=== PATIENT | female | born 1980 ===

== ENCOUNTER 2025-01-11 10:09 | Emergency (ER) | payer BC, SELFPAY ==
--- NOTE | ~2025-01-11 | XR_ITS ---
XR hand RT min 3V Ordering provider: Surinder Treviño MD History: . right hand middle finger injury . Comparison: None. FINDINGS: BONES: Healed or healing fracture in the fourth metacarpal bone is noted. Possible lucency at the bas e of the distal phalanx of the thumb which may indicate a fracture. Follow-up advised. JOINT SPACES: Normal. SOFT TISSUES: Normal. IMPRESSION: Healed or healing fracture in the fourth metacarpal bone. Lucency at the base of the distal phalanx of the thumb which may be a fracture. Clinical correlation advised. N Reviewed, dictated and finalized at location A.
[2025-01-11 10:10] VITALS: BP 144/87; PULSE 81; RESP 18; TEMP 37.1; O2SAT 97
--- NOTE | 2025-01-11 10:15 | ED.UPPEXIN ---
HPI - Extremity Injury (Upper) General Chief Complaint: Extremity Injury, Upper Stated Complaint: finger injury Time Seen by Provider: 01/11/25 10:15 Source: patient Mode of arrival: ambulatory Limitations: no limitations History of Present Illness HPI narrative: 44-year-old female with no significant past medical history presents to the ED with a 3 day history of -- pain and swelling of the right middle finger. she hurt herself while cooking 3 days ago. No other injuries noted. MD complaint: injury to: right Onset (ago): day(s) ( Three days) Other Extremity Injury: Right: fingers Other injuries: none Handedness: right Place: home Severity: moderate Relieving factors: immobilization Exacerbating factors: movement of extremity Context: direct blow Associated symptoms: denies other symptoms Related Data Allergies Allergy/AdvReac Type Severity Reaction Status Date / Time narcotics AdvReac Severe Abdominal Uncoded 01/11/25 10:31 Pain Review of Systems Review of Systems: All systems reviewed & are unremarkable except as noted in HPI and below Exam Narrative: vitals are stable Const: General: no acute distress Nutritional Appearance: well nourished Orientation/consciousness: patient oriented x3 Limitations: no limitations HENMT: Head: normal to inspection Ears: external ears normal Face/Nose/Sinus: Normal external nose present Face and sinus: normal facial exam Mouth: Yes Normal oral and palatal mucosa present Eyes: Conjunctivae: conjunctivae normal Pupils: Equal, round and reactive pupils present EOM: EOMs intact bilaterally Direct Ophthalmoscopy: no photophobia Neck: Neck: normal visual inspection, no lymphadenopathy and no meningeal signs Chest: Chest palpation & inspection: normal inspection of the chest Resp: Effort & Inspection: normal respiratory effort Auscultation: clear to auscultation bilaterally Cardio: Rate: regular rate Rhythm: regular rhythm GI: GI Palp: Yes Soft to palpation Auscultation: normal bowel sounds Other: no tenderness/ rigidity /rebound. : General: Yes no CVA tenderness Back/Spine/Pelvis: Back: no CVA tenderness Skin: General skin exam: normal color Rashes: no rashes Wounds: no wounds Neuro: General: patient oriented x3, moves all extremities, no meningeal signs, no focal motor deficits and CN's II-XI intact bilaterally Cranial nerves: Yes Nystagmus not present Speech: normal speech Extrem: General: normal to inspection and no clubbing, cyanosis or edema Other: Right hand middle finger is swollen along with swelling of 3rd MP joint. Decreased range of motion. Psych: Mental Status: mental status grossly normal Affect: normal affect Attitude: cooperative Course Course Emergency Course: Right hand 3rd finger/ 3rd MP joint tenderness/swelling-- x-ray did not show any fracture or dislocation at this segment. X-ray shows a fracture in the 4th metacarpal where she had a previous fracture. X-ray also shows a small fracture in the distal phalanx of the thumb and the patient does not have any tenderness at that spot. Patient received Toradol without significant improvement. Vital Signs Vital signs: Vital Signs Temperature 37.1 C 01/11/25 10:10 Pulse Rate 81 01/11/25 10:10 Respiratory Rate 18 01/11/25 10:10 Blood Pressure 144/87 H 01/11/25 10:10 Pulse Oximetry 97 01/11/25 10:10 Oxygen Delivery Room Air 01/11/25 10:10 Temperature 37.1 C 01/11/25 10:10 Pulse Rate 81 01/11/25 10:10 Respiratory Rate 18 01/11/25 10:10 Blood Pressure 144/87 H 01/11/25 10:10 Pulse Oximetry 97 01/11/25 10:10 Oxygen Delivery Room Air 01/11/25 10:10 MDM - Extremity Injury (Upper) MDM Narrative Medical decision making narrative: right Third MP joint sprain right 3rd finger sprain. Differential Diagnosis Differential diagnosis: Likely finger sprain and dislocation of finger Medical Records Attestation: I reviewed the patient's medical records. Lab Data Attestation: I reviewed the patient's lab results. Discharge Plan Discharge Clinical Impression: Finger sprain Qualifiers: Encounter type: initial encounter Finger: middle finger Sprain of finger site: interphalangeal joint Laterality: right Qualified Code(s): S63.632A - Sprain of interphalangeal joint of right middle finger, initial encounter Metacarpophalangeal joint pain Qualifiers: Laterality: right Qualified Code(s): M25.541 - Pain in joints of right hand Patient Disposition: Home Condition: Stable Instructions: Antibiotic Form, Finger Sprain (ED) Patient Language: Telugu Prescriptions: New diclofenac sodium 50 mg tablet,delayed release (DR/EC) 50 mg PO TID PRN (Reason: pain) Qty: 30 0RF Follow-up/Referrals: UNKNOWN,DOCTOR [Primary Care Provider] - Stand Alone Forms: Work/School Release IP Time of Disposition: 11:14
[2025-01-11] MEDS: KETOROLAC 30 MG/ML VIAL (*BKC) IM (10:37)
--- OUTSIDE RECORDS SUMMARY | 2025-01-11 11:35 | XMS_ITS | Referral Summary ---
Author Organization [facility] Address [address] [place] [address] Care Team Providers Care Animal Behaviorist Name Role Phone Unknown, Notinfile Primary Care Provider Unavail able Allergies Active Allergy Reactions Criticality Noted Date Comments Opioids - Morphine Analogues Mental status changes Low 05/30/2024 Medications ofloxacin (OCUFLOX) 0.3 % ophthalmic solutionIndicat ions:Hordeolum externum of right lower eyelid instill 2 drops in right eye every 4 hours for 2 days, then 2 drops 4 times daily on days 3 through 7 5 mL 05/30/2024 Active Active Problems Problem Noted Date Diagnosed Date Dermatitis 09/23/2024 Assessment & Plan (09/23/2024 2:40 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 Will send prednisone 60 mg taper to patient pharmacy. May continue with OTC anti-histamine. If symptoms worsen or do not improve recommend in person evaluation. Patient verbalized understanding and agreed to plan of care at this time. Social History Tobacco Use Types Packs/Day Years Used Date Smoking Tobacco: Never Assessed Personal Safety Answer Date Recorded Getting School Help Needed Not on file 05/30 Comments Unknown Sex and Gender Information Value Date Recorded Sex Assigned at Not on file Legal Sex Female 9:07 PM CDT Gender Identity Female 05/30/2024 8:22 AM CDT Sexual Orientation Straight 05/30/2024 8: 22 AM CDT Last Filed Vital Signs Vital Sign Reading Time Taken Comments Blood Pressure 138/70 05/30/2024 2:15 PM CDT Pulse 64 05/30/2024 2:15 PM CDT Temperature 36.5 C (97.7 F) 05/30/2024 2:15 PM CDT Respiratory Rate 20 05/30/2024 2:15 PM CDT Oxygen Saturation 96% 05/30/2024 2:15 PM CDT Inhaled Oxygen Concentration - - Weight 87.7 kg (193 lb 4.8 oz) 05/30/2024 2:15 P M CDT Height 167.6 cm (5' 6 ) 05/30/2024 2:15 PM CDT Body Mass Index 31.2 05/30/2024 2:15 PM CDT Plan of Treatment Not on file Care Teams Animal Behaviorist Relationship Specialty Start Date End Date Unknown, Notinfile PCP - General 05/30/24
--- OUTSIDE RECORDS SUMMARY | 2025-01-11 11:35 | XMS_ITS | Clinical Summary ---
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 Will send prednisone [...] 05/30/2024 2:15 PM CDT Plan of Treatment Health Maintenance Due Date Last Done Comments Breast Cancer Screening-Mammogram 1980 Cervical Cancer Screening 1980 Depression Screening 1980 Hepatitis C Screening 1980 DTaP/Tdap/Td Vaccine (1 - Tdap) 01/31/1991 Varicella Vaccines (1 of 2 - 13+ 2-dose series) 01/31/1993 Hepatitis B Screening 01/31/1998 Regular Well Visit/Exam 18-64 01/31/1998 Influenza Vaccine (#1) 2024 HPV Vaccines Aged Out No longer eligi ble based on patient's age to complete this topic Pneumococcal vaccine <65 Aged Out No longer eligible based on patient's age to complete this topic Care Teams Pharmacy Laboratory Technician Relationship Specialty Start Date End Date Unknown, Notinfile PCP - General 05/30/24
== END 2025-01-11 11:20 | disposition home or self-care (01) ==
PROVIDERS: Emergency Provider Internal Medicine Critical Care Medicine
DX: S63.632A Sprain of interphalangeal joint of right middle finger, initial encounter (principal); M25.541 Pain in joints of right hand; X58.XXXA Exposure to other specified factors, initial encounter
CPT/HCPCS: 29130; 73130; 96372; 99283; J1885